=== PATIENT | male | born 1995 | race Hispanic/Latino ===

== ENCOUNTER 2021-08-07 19:20 | Emergency (ER) | payer OTHER ==
[~2021-08-07] VITALS: Ht 180.3 cm; Wt 122.5 kg
[2021-08-07] MEDS ORDERED: LORAZEPAM 2 MG/ML 1 ML VIAL ONE (19:51)
[2021-08-07 19:59] LABS: BASOPHILS % (AUTO) 0.7 % (0.0-5.0); EOSINOPHILS % (AUTO) 1.3 % (0.0-8.0); HEMATOCRIT 41.8 % (42-54); LYMPHOCYTES % (AUTO) 34.8 % (21.0-51.0); MEAN CORPUSCULAR HEMOGLOBIN 26.8 pg (27.0-33.0); MEAN CORPUSCULAR HGB CONC 32.5 g/dL (32.0-36.0); MEAN CORPUSCULAR VOLUME 82.4 fL (79-99); NEUTROPHILS % (AUTO) 57.9 % (40.0-77.0); PLATELET COUNT (AUTO) 356 K/uL (130-400); RED BLOOD CELL COUNT(AUTO) 5.07 MIL/uL (4.50-6.20); RED CELL DISTRIBUTION WIDTH 13.6 % (11.0-15.5); WHITE BLOOD COUNT (AUTO) 9.4 K/uL (4.8-10.8)
[2021-08-07] MEDS ORDERED: LORAZEPAM 2 MG/ML 1 ML VIAL IVP ONE (20:00)
[2021-08-07 20:11] LABS: CREATININE 0.9 mg/dL (0.5-1.5); POTASSIUM 3.3 mmol/L (3.5-5.1)
[2021-08-07 20:24] LABS: ALBUMIN 3.6 g/dL (3.5-5.0); BILIRUBIN,TOTAL 0.3 mg/dL (0.2-1.0); TOTAL PROTEIN, SERUM 7.7 g/dL (6.0-8.3)
[2021-08-07 20:29] VITALS: BP 122/71
[2021-08-07] MEDS ORDERED: POTASSIUM BICARB/CIT AC 25 MEQ TABLET.EFF PO ONE (20:30)
[2021-08-07 20:59] LABS: APPEARANCE,URINE Clear (CLEAR); BILIRUBIN,URINE Negative (NEGATIVE); COLOR,URINE Yellow (YELLOW); GLUCOSE, URINE (UA) Negative (NEGATIVE); KETONES,URINE Negative (NEGATIVE); LEUKOCYTE ESTERASE ,URINE Negative (NEGATIVE); NITRATE,URINE Negative (NEGATIVE); OCCULT BLOOD,URINE Negative (NEGATIVE); PROTEIN,URINE Negative (NEGATIVE); UROBILINOGEN,URINE 0.2 mg/dL (0.2-1.0)
[2021-08-07] MEDS ORDERED: HYDR-3421 PO (21:09)
== END 2021-08-07 21:19 | disposition home or self-care (01) ==
LOC: EDH 19:20
DX: F41.9 Anxiety disorder, unspecified (principal); R07.89 Other chest pain; E66.01 Morbid (severe) obesity due to excess calories; Z68.37 Body mass index [BMI] 37.0-37.9, adult
CPT/HCPCS: 36415; 71045; 80053; 81003; 84484; 85025; 86140; 93005; 96374; 99285; J2060

== ENCOUNTER 2021-08-19 02:23 | Emergency (ER) | payer OTHER ==
[~2021-08-19] VITALS: Ht 180.3 cm; Wt 165.6 kg
[~2021-08-19 02:23] MED LIST: BUSP15 PO; HYDR-3421 PO; NAPR-1196 PO
[2021-08-19 03:07] VITALS: BP 123/78
== END 2021-08-19 03:11 | disposition home or self-care (01) ==
LOC: EDH 02:23
DX: T17.828A Food in other parts of respiratory tract causing other injury, initial encounter (principal); Z79.899 Other long term (current) drug therapy; X58.XXXA Exposure to other specified factors, initial encounter; Y93.89 Activity, other specified; Y92.89 Other specified places as the place of occurrence of the external cause; Y99.8 Other external cause status

== ENCOUNTER 2021-08-27 15:50 | Emergency (ER) | payer OTHER, SELFPAY ==
[~2021-08-27] VITALS: Ht 180.3 cm; Wt 163.4 kg
[2021-08-27 16:11] LABS: EOSINOPHILS % (AUTO) 1.9 % (0.0-8.0); HEMATOCRIT 45.8 % (42-54); MEAN CORPUSCULAR HEMOGLOBIN 26.1 pg (27.0-33.0); MEAN CORPUSCULAR HGB CONC 31.4 g/dL (32.0-36.0); MEAN CORPUSCULAR VOLUME 83.1 fL (79-99); MONOCYTES % (AUTO) 5.9 % (3.0-13.0); PLATELET COUNT (AUTO) 358 K/uL (130-400); RED BLOOD CELL COUNT(AUTO) 5.51 MIL/uL (4.50-6.20); RED CELL DISTRIBUTION WIDTH 13.8 % (11.0-15.5); WHITE BLOOD COUNT (AUTO) 8.4 K/uL (4.8-10.8)
[2021-08-27 16:21] LABS: PROTHROMBIN TIME 10.9 SEC (9.6-11.6)
[2021-08-27 16:22] LABS: PARTIAL THROMBOPLASTIN TIME 29.9 SEC (26.3-35.5)
[2021-08-27 16:28] LABS: CREATININE 0.9 mg/dL (0.5-1.5); POTASSIUM 3.4 mmol/L (3.5-5.1)
[2021-08-27 16:32] LABS: ALBUMIN 3.9 g/dL (3.5-5.0); BILIRUBIN,TOTAL 0.5 mg/dL (0.2-1.0)
[2021-08-27 16:33] LABS: B-TYPE NATRIURETIC PEPTIDE 20 pg/mL (0-100)
[2021-08-27] MEDS ORDERED: PROCHLORPERAZINE 10MG/2ML INJ IVP ONE (17:00)
[2021-08-27] MEDS ORDERED: KETOROLAC 30MG VIAL (30MG/ML) IV ONE (17:00)
[2021-08-27] MEDS ORDERED: DiphenhydrAMINE HCL 50 MG/ML VIAL IV ONE (17:00)
[2021-08-27 17:48] LABS: APPEARANCE,URINE Clear (CLEAR); BILIRUBIN,URINE Negative (NEGATIVE); COLOR,URINE Yellow (YELLOW); GLUCOSE, URINE (UA) Negative (NEGATIVE); KETONES,URINE Negative (NEGATIVE); LEUKOCYTE ESTERASE ,URINE Negative (NEGATIVE); NITRATE,URINE Negative (NEGATIVE); OCCULT BLOOD,URINE Negative (NEGATIVE); PH,URINE 7.5 (5.0-8.0); PROTEIN,URINE Negative (NEGATIVE)
[2021-08-27 17:56] LABS: AMPHET/METH SCREEN,URINE NEGATIVE (NEGATIVE); BARBITURATE SCREEN, URINE NEGATIVE (NEGATIVE); BENZODIAZEPINES SCREEN,URINE NEGATIVE (NEGATIVE); CANNABINOID SCREEN,URINE NEGATIVE (NEGATIVE); COCAINE SCREEN,URINE NEGATIVE (NEGATIVE); OPIATE SCREEN,URINE NEGATIVE (NEGATIVE); PHENCYCLIDINE SCREEN,URINE NEGATIVE (NEGATIVE)
[2021-08-27] MEDS ORDERED: DiphenhydrAMINE HCL 50 MG/ML VIAL ONE (18:02)
[2021-08-27] MEDS ORDERED: PROCHLORPERAZINE 10MG/2ML INJ ONE (18:04)
[2021-08-27] MEDS ORDERED: KETOROLAC 30MG VIAL (30MG/ML) ONE (18:04)
[2021-08-27 18:12] VITALS: BP 107/73
== END 2021-08-27 19:49 | disposition home or self-care (01) ==
LOC: EDH 15:50
DX: G43.109 Migraine with aura, not intractable, without status migrainosus (principal); F32.A Depression, unspecified; R20.2 Paresthesia of skin; R07.89 Other chest pain; F41.9 Anxiety disorder, unspecified; E66.01 Morbid (severe) obesity due to excess calories; Z79.1 Long term (current) use of non-steroidal anti-inflammatories (NSAID); Z68.43 Body mass index [BMI] 50.0-59.9, adult
CPT/HCPCS: 36415; 70450; 71045; 80053; 80305; 81003; 82550; 83721; 83880; 84484; 85025; 85610; 85730; 93005; 96374; 96375; 99285; J0780; J1200; J1885

== ENCOUNTER 2021-10-02 01:26 | Emergency (ER) | payer OTHER, SELFPAY ==
[~2021-10-02] VITALS: Ht 180.3 cm; Wt 161.0 kg
[2021-10-02 01:40] LABS: APPEARANCE,URINE CLEAR (CLEAR); BILIRUBIN,URINE NEGATIVE (NEGATIVE); COLOR,URINE YELLOW (YELLOW); GLUCOSE, URINE (UA) NEGATIVE (NEGATIVE); KETONES,URINE NEGATIVE (NEGATIVE); LEUKOCYTE ESTERASE ,URINE NEGATIVE (NEGATIVE); NITRATE,URINE NEGATIVE (NEGATIVE); OCCULT BLOOD,URINE NEGATIVE (NEGATIVE); PROTEIN,URINE NEGATIVE (NEGATIVE); UROBILINOGEN,URINE 0.2 mg/dL (0.2-1.0)
[2021-10-02] MEDS ORDERED: NAPROXEN 500 MG TABLET PO ONE (03:30)
[2021-10-02] MEDS ORDERED: CEPHALEXIN 500 MG CAPSULE PO ONE (03:30)
[2021-10-02] MEDS ORDERED: NAPR500T6 PO (03:33)
[2021-10-02] MEDS ORDERED: CEPH500B PO (03:33)
[2021-10-02] MEDS ORDERED: CEPHALEXIN 250 MG CAPSULE ONE (03:37)
[2021-10-02] MEDS ORDERED: NAPROXEN 250 MG TAB ONE (03:37)
[2021-10-02 03:47] VITALS: BP 105/87
== END 2021-10-02 03:48 | disposition home or self-care (01) ==
LOC: EDH 01:26
DX: N45.1 Epididymitis (principal); F32.A Depression, unspecified; E66.01 Morbid (severe) obesity due to excess calories; Z79.1 Long term (current) use of non-steroidal anti-inflammatories (NSAID); Z68.42 Body mass index [BMI] 45.0-49.9, adult
CPT/HCPCS: 76870; 81003

== ENCOUNTER 2021-10-30 19:03 | Emergency (ER) | payer OTHER ==
[~2021-10-30] VITALS: Ht 180.3 cm; Wt 158.8 kg
[~2021-10-30 19:03] MED LIST changes: +CEPH500B PO; +NAPR500T6 PO
[2021-10-30 19:26] LABS: BASOPHILS % (AUTO) 0.5 % (0.0-5.0); EOSINOPHILS % (AUTO) 1.9 % (0.0-8.0); HEMATOCRIT 43.2 % (42-54); LYMPHOCYTES % (AUTO) 24.3 % (21.0-51.0); MEAN CORPUSCULAR HEMOGLOBIN 26.1 pg (27.0-33.0); MEAN CORPUSCULAR HGB CONC 31.3 g/dL (32.0-36.0); MEAN CORPUSCULAR VOLUME 83.4 fL (79-99); NEUTROPHILS % (AUTO) 68.1 % (40.0-77.0); PLATELET COUNT (AUTO) 377 K/uL (130-400); RED BLOOD CELL COUNT(AUTO) 5.18 MIL/uL (4.50-6.20); RED CELL DISTRIBUTION WIDTH 13.2 % (11.0-15.5)
[2021-10-30 19:58] LABS: POTASSIUM 4.1 mmol/L (3.5-5.1)
[2021-10-30 20:02] LABS: ALBUMIN 3.8 g/dL (3.5-5.0); BILIRUBIN,TOTAL 0.3 mg/dL (0.2-1.0); TOTAL PROTEIN, SERUM 7.7 g/dL (6.0-8.3)
[2021-10-30] MEDS ORDERED: METH-662 PO (20:42)
[2021-10-30 20:48] VITALS: BP 120/71
== END 2021-10-30 20:58 | disposition home or self-care (01) ==
LOC: EDH 19:03
DX: M62.830 Muscle spasm of back (principal); R07.89 Other chest pain; Z79.1 Long term (current) use of non-steroidal anti-inflammatories (NSAID); E66.01 Morbid (severe) obesity due to excess calories; Z68.42 Body mass index [BMI] 45.0-49.9, adult
CPT/HCPCS: 36415; 71045; 80053; 84484; 85025; 93005